=== PATIENT | female | born 1965 | race Caucasian/White ===

== ENCOUNTER 2017-04-01 11:36 | Inpatient (IN) | payer OTHER ==
[~2017-04-01] VITALS: Ht 162.6 cm; Wt 50.0 kg
[~2017-04-01 11:36] MED LIST: ALBUTEROL0.63 MG/3 INH; ATROVENT INH S2.5 ML INH; ENSURE PLUS237 ML PO; LASIX20 MG PO; LEVAQUIN500 MG PO; MEDROL DOSEPAK 24 MG PO; MEGACE400 MG/10 PO; PERFOROMIS20 MCG/2 M INH; PLAVIX 75 MG TA75 MG PO; PROAIR HFA8.5 GM INH; PROTONIX40 MG PO; PULMICORT0.5 MG/2 M INH; SENOKOT-S TABL1 EACH PO; SPIRIVA18 MCG INH; SYMBICORT 160-1 INHA INH; SYMBICORT 16010.2 GM INH
[2017-04-01 12:31] LABS: HEMOGLOBIN 13.2 gm/dl (12.3-15.3); RED BLOOD COUNT 5.3 M/UL (4.00-5.10); WHITE BLOOD COUNT 7.8 K/UL (4.5-11.0)
[2017-04-01 12:53] LABS: BUN/CREATININE RATIO 23 (0-10)
[2017-04-01] MEDS ORDERED: FLOVENT DISKUS50 MCG INH (21:16)
[2017-04-01] MEDS ORDERED: GABAPENTIN800 MG PO (21:16)
[2017-04-01] MEDS ORDERED: REQUIP0.25 MG PO (21:17)
[2017-04-01] MEDS ORDERED: TOPAMAX50 MG PO (21:18)
[2017-04-01] MEDS ORDERED: VITAMIN D350000 UNIT PO (21:19)
[2017-04-01] MEDS ORDERED: DOXYCYCLINE MO100 MG PO (21:20)
[2017-04-01] MEDS ORDERED: SYMBICORT 16010.2 GM INH (21:23)
[2017-04-02 05:38] LABS: HEMOGLOBIN 12.4 gm/dl (12.3-15.3); RED BLOOD COUNT 4.91 M/UL (4.00-5.10); WHITE BLOOD COUNT 7.7 K/UL (4.5-11.0)
[2017-04-02 05:58] LABS: BUN/CREATININE RATIO 26 (0-10)
[2017-04-03] MEDS ORDERED: CEFTIN250 MG/5 M PO (11:41)
[2017-04-03] MEDS ORDERED: PREDNISONE10 M1 PO (11:43)
== END 2017-04-03 13:20 | disposition home or self-care (01) | DRG 189 ==
LOC: ER1 11:36 → ZEROF 14:32 → PROG CARE 20:45
PROVIDERS: Emergency Medicine; ADMIT Family Medicine
DX: J96.22 Acute and chronic respiratory failure with hypercapnia (principal); J18.9 Pneumonia, unspecified organism; I50.32 Chronic diastolic (congestive) heart failure; J44.0 Chronic obstructive pulmonary disease with (acute) lower respiratory infection; E44.1 Mild protein-calorie malnutrition; J44.1 Chronic obstructive pulmonary disease with (acute) exacerbation; Z68.1 Body mass index [BMI] 19.9 or less, adult; I27.2 Other secondary pulmonary hypertension; I11.0 Hypertensive heart disease with heart failure; Z87.891 Personal history of nicotine dependence; Z79.899 Other long term (current) drug therapy; Z99.81 Dependence on supplemental oxygen; Z91.19 Patient's noncompliance with other medical treatment and regimen
CPT/HCPCS: 36415; 36600; 71010; 80048; 80053; 82550; 82553; 82803; 83605; 83735; 83874; 83880; 84484; 85025; 85610; 85730; 87040; 93005; 94640; 94660; 94664; 96361; 96374; 96375; 99285; J0696; J2920; J2930; J7030; J7050; Q9963

== ENCOUNTER 2017-04-08 15:16 | Emergency (ER) | payer OTHER ==
[~2017-04-08 15:16] MED LIST changes: +CEFTIN250 MG/5 M PO; +DOXYCYCLINE MO100 MG PO; +FLOVENT DISKUS50 MCG INH; +GABAPENTIN800 MG PO; +PREDNISONE10 M1 PO; +REQUIP0.25 MG PO; +TOPAMAX50 MG PO; +VITAMIN D350000 UNIT PO
== END 2017-04-08 17:00 | disposition expired ==
LOC: ER1 15:16
DX: I46.9 Cardiac arrest, cause unspecified (principal); J44.9 Chronic obstructive pulmonary disease, unspecified; J96.92 Respiratory failure, unspecified with hypercapnia
CPT/HCPCS: 31500; 36415; 51702; 71010; 81001; 82803; 87086; 92950; 93005; 94002; 94003; 96374; 96375; 99285; A4628; J0171; J0461; J0610; J2310